=== PATIENT | male | born 1965 | race Caucasian/White ===

== ENCOUNTER 2016-07-23 03:05 | Emergency (ER) | payer OTHER ==
[~2016-07-23] VITALS: Ht 188 cm; Wt 117.9 kg
--- NOTE | 2016-07-23 03:28 | ED GI/GU/ABDOMINAL COMPLAINT ---
See Addendum History of Present Illness General Chief Complaint: General Adult Stated Complaint: "VOMITING SINCE 0200 BACK PAIN" Source: patient Exam Limitations: no limitations Vital Signs & Intake/Output Vital Signs & Intake/Output Vital Signs Date Time Temp Pulse Resp B/P B/P Pulse O2 O2 Flow FiO2 Mean Ox Delivery Rate 07/23 0348 Room Air 07/23 0320 169/103 07/23 0319 96.8 73 20 154/102 98 Room Air Allergies Coded Allergies: NO KNOWN ALLERGIES (09/11/12) Reconcile Medications No Known Home Medications Triage Note: PT TO ED C/O BACK PAIN THAT STARTED AT 0200. TRIED TO URINATE, "ONLY A LITTLE BIT CAME OUT" +N/V. SKIN WARM AND CLAMMY. DENIES PMH OF KIDNEY STONES Triage Nurses Notes Reviewed? yes Onset: Abrupt Duration: hour(s): Timing: single episode today Quality/Severity: sharpness Location: right flank Radiation: no radiation Activities at Onset: sleep Prior Abdominal Problems: similar symptoms Modifying Factors: Worsens With: movement. Associated Symptoms: nausea/vomiting HPI: 51 yo gentleman in prior good health, h/o of prior ear infections in [facility], presents with right flank pain that awoke him suddenly at 2am, associated with nausea, vomiting, and diaphoresis. He has no fever, chest pain, shortness of breath. She is otherwise well. Past History Travel History Traveled to [place] past 21 day No Medical History Any Pertinent Medical History? see below for history Neurological: NONE EENT: NONE Cardiovascular: NONE Respiratory: NONE Gastrointestinal: NONE Hepatic: NONE Renal: NONE Musculoskeletal: NONE Psychiatric: NONE Endocrine: NONE Surgical History Surgical History: none Psychosocial History What is your primary language Luxembourger Tobacco Use: Never used ETOH Use: occasional use Illicit Drug Use: denies illicit drug use Family History Hx Contributory? No Review of Systems Review of Systems Constitutional: Reports: no symptoms. EENTM: Reports: no symptoms. Respiratory: Reports: no symptoms. Cardiovascular: Reports: no symptoms. GI: Reports: no symptoms. Genitourinary: Reports: no symptoms. Musculoskeletal: Reports: no symptoms. Skin: Reports: no symptoms. Neurological/Psychological: Reports: no symptoms. Hematologic/Endocrine: Reports: no symptoms. Immunologic/Allergic: Reports: no symptoms. All Other Systems: Reviewed and Negative Physical Exam Physical Exam General Appearance: well developed/nourished, mild distress Head: atraumatic, normal appearance Eyes: Bilateral: normal appearance. Ears, Nose, Throat, Mouth: right TM with erythema, inflammation. Neck: normal inspection, supple, full range of motion Respiratory: normal breath sounds, chest non-tender, no respiratory distress Cardiovascular: regular rate/rhythm Gastrointestinal: normal bowel sounds, soft, non-tender Back: normal inspection Extremities: normal range of motion Neurologic/Psych: no motor/sensory deficits, awake, alert, oriented x 3 Skin: intact, normal color, warm/dry Core Measures ACS in differential dx? No Severe Sepsis Present: No Septic Shock Present: No Progress Differential Diagnosis: ear infection, sinusitis, bacterial vs viral vs allergic vs other. Plan of Care: Orders Procedure Date/time Status URINALYSIS 07/23 425 Active TROPONIN LEVEL 07/23 309 Active LIPASE 07/23 309 Active ETHANOL 07/23 309 Active COMPREHENSIVE METABOLIC PANEL 07/23 309 Active CBC WITHOUT DIFFERENTIAL 07/23 309 Complete AMYLASE 07/23 309 Active EKG 07/23 309 Active Current Medications Sig/Lizette Start time Last Medication Dose Stop Time Status Admin Sodium Chloride 1,000 ML BOLUS ONE 07/23 034 AC 07/23 (Normal Saline 0.9%) 07/23 0444 0337 Laboratory Tests 07/23/16 0345: Anion Gap 13, Estimated GFR > 60, BUN/Creatinine Ratio 16.0, Glucose 124 H, Calcium 9.1, Total Bilirubin 0.7, AST 20, ALT 40, Alkaline Phosphatase 58, Troponin I Pending, Total Protein 7.5, Albumin 4.4, Globulin 3.1, Albumin/ Globulin Ratio 1.4, Amylase 57, Lipase 145, CBC w Diff NO MAN DIFF REQ, RBC 5.47 , MCV 90.0, MCH 30.3, RDW 13.7, MPV 8.1, Gran % 57.2, Lymphocytes % 27.7, Monocytes % 8.7, Eosinophils % 5.8 H, Basophils % 0.6, Absolute Granulocytes 4.5, Absolute Lymphocytes 2.2, Absolute Monocytes 0.7 H, Absolute Eosinophils 0.4, Absolute Basophils 0, PUBS MCHC 33.7, Serum Alcohol < 10.0 Initial ED EKG: none Departure Departure Disposition: HOME OR SELF CARE Condition: Stable Clinical Impression Primary Impression: Otitis media Referrals: DALE TRIPATHI MD (PCP/Family) Departure Forms: Customer Survey General Discharge Information Prescriptions: Current Visit Scripts No Known Home Medications
[2016-07-23 04:00] LABS: ABSOLUTE BASOPHIL COUNT 0 /CUMM (0.0-0.2); ABSOLUTE EOSINOPHIL COUNT 0.4 /CUMM (0.0-0.7); ABSOLUTE GRANULOCYTE CT 4.5 /CUMM (1.4-6.5); ABSOLUTE LYMPH COUNT 2.2 /CUMM (1.2-3.4); ABSOLUTE MONOCYTE COUNT 0.7 /CUMM (0.10-0.60); BASOPHIL % 0.6 % (0.0-2.0); EOSINOPHIL % 5.8 % (0-5); GRANULOCYTE % 57.2 % (42.2-75.2); HEMATOCRIT 49.2 % (42-52); MEAN CORPUSCULAR HGB 30.3 PG (27.0-31.0); MEAN CORPUSCULAR HGB CONC 33.7 G/DL (33.0-37.0); MEAN PLATELET VOLUME 8.1 FL (7.4-10.4); PLATELET COUNT 264 /CUMM (130-400); RBC DISTRIBUTION WIDTH 13.7 % (11.5-14.5); RED BLOOD CELL CT 5.47 /CUMM (4.70-6.10); WHITE BLOOD CELL COUNT 7.8 /CUMM (4.8-10.8)
--- NOTE | 2016-07-23 04:30 | CT SCAN REPORT ---
EXAMINATION: CT ABDOMEN AND PELVIS WITHOUT CONTRAST CLINICAL INFORMATION: Left flank pain since 2:00 AM. Question kidney stones. COMPARISON: None TECHNIQUE: Multidetector volumetric imaging was performed from the superior aspect of the liver through the pubic symphysis. Sagittal and coronal reformatted images were obtained on the technologist's workstation. DLP: 1341 mGy-cm FINDINGS: LUNG BASES: The visualized lung bases are unremarkable. LIVER, GALLBLADDER, AND BILIARY TREE: The liver is normal in size, shape, and attenuation. No focal hepatic lesion or biliary ductal dilatation is present. The gallbladder is unremarkable with no evidence of radiopaque gallstones, gallbladder wall thickening, or obvious pericholecystic inflammatory changes. PANCREAS: Unremarkable. SPLEEN: Unremarkable. ADRENAL GLANDS: Unremarkable. KIDNEYS AND URETERS: The kidneys are normal in size, shape, and attenuation. Mild right hydronephrosis. There is asymmetric right perinephric stranding. There is a 0.3 cm calculus in the distal right ureter, approximately 0.6 cm proximal to the ureterovesicular junction. Stranding is also seen along the course of the right ureter. Right lower pole 2.4 cm simple cyst. No additional calculi are seen. BLADDER: Unremarkable. GASTROINTESTINAL TRACT: The stomach and small bowel are unremarkable. No dilated loops of bowel or evidence of obstruction. Normal appendix. No colonic wall thickening or inflammatory change. ABDOMINAL WALL: No significant hernia is appreciated. LYMPH NODES: No lymphadenopathy. VASCULAR: Unremarkable. PELVIC VISCERA: The prostate and seminal vesicles are unremarkable. OSSEOUS STRUCTURES: No acute or suspicious osseous abnormality. Mild degenerative changes seen in the spine and hips. IMPRESSION: Mild right hydronephrosis with prominent perinephric and periureteral stranding. 0.3 cm distal ureteral calculus.
--- NOTE | 2016-07-23 04:35 | ED GI/GU/ABDOMINAL COMPLAINT ---
History of Present Illness General Chief Complaint: General Adult Stated Complaint: "VOMITING SINCE 0200 BACK PAIN" Source: patient, family Exam Limitations: no limitations Vital Signs & Intake/Output Vital Signs & Intake/Output Vital Signs Date Time Temp Pulse Resp B/P B/P Pulse O2 O2 Flow FiO2 Mean Ox Delivery Rate 07/23 0606 97.0 67 20 147/95 95 Room Air 07/23 0348 Room Air 07/23 0320 169/103 07/23 0319 96.8 73 20 154/102 98 Room Air Allergies Coded Allergies: NO KNOWN ALLERGIES (09/11/12) Reconcile Medications Hydromorphone HCl (Dilaudid) 4 MG TABLET 1-2 TAB PO 4XDP PRN pain twenty...[id number] Ibuprofen 800 MG TABLET 1 TAB PO 4 TIMES/DAY PRN pain Ondansetron (Zofran Odt) 4 MG TAB.RAPDIS 1 TAB SL TID PRN nausea Tamsulosin HCl (Flomax) 0.4 MG CAP.ER.24H 1 CAP PO DAILY kidney stones/ prostate Triage Note: PT TO ED C/O BACK PAIN THAT STARTED AT 0200. TRIED TO URINATE, "ONLY A LITTLE BIT CAME OUT" +N/V. SKIN WARM AND CLAMMY. DENIES PMH OF KIDNEY STONES Triage Nurses Notes Reviewed? yes Onset: Abrupt Duration: hour(s):, constant Timing: single episode today Quality/Severity: right flank pain Location: right flank Radiation: no radiation Activities at Onset: sleep Prior Abdominal Problems: none Modifying Factors: Worsens With: movement. Associated Symptoms: abdominal pain, nausea/vomiting HPI: 51 yo gentleman in prior good health, h/o of prior ear infections in [facility], presents with right flank pain that awoke him suddenly at 2am, associated with nausea, vomiting, and diaphoresis. He has no fever, chest pain, shortness of breath. Past History Travel History Traveled to [place] past 21 day No Medical History Any Pertinent Medical History? see below for history Neurological: NONE EENT: NONE Cardiovascular: NONE Respiratory: NONE Gastrointestinal: NONE Hepatic: NONE Renal: NONE Musculoskeletal: NONE Psychiatric: NONE Endocrine: NONE Surgical History Surgical History: none Psychosocial History What is your primary language Cambodian Tobacco Use: Never used ETOH Use: occasional use Illicit Drug Use: denies illicit drug use Family History Hx Contributory? No Review of Systems Review of Systems Constitutional: Reports: no symptoms. EENTM: Reports: no symptoms. Respiratory: Reports: no symptoms. Cardiovascular: Reports: no symptoms. GI: Reports: no symptoms. Genitourinary: Reports: no symptoms. Musculoskeletal: Reports: no symptoms. Skin: Reports: no symptoms. Neurological/Psychological: Reports: no symptoms. Hematologic/Endocrine: Reports: no symptoms. Immunologic/Allergic: Reports: no symptoms. All Other Systems: Reviewed and Negative Physical Exam Physical Exam General Appearance: well developed/nourished, mild distress, moderate distress Head: atraumatic, normal appearance Eyes: Bilateral: normal appearance. Ears, Nose, Throat, Mouth: hearing grossly normal Neck: normal inspection, supple, full range of motion, normal alignment Respiratory: normal breath sounds, chest non-tender, no respiratory distress, quiet respiration, lungs clear Cardiovascular: regular rate/rhythm Gastrointestinal: normal bowel sounds, soft, non-tender, no organomegaly Back: normal inspection Extremities: normal range of motion Neurologic/Psych: no motor/sensory deficits, awake, alert, oriented x 3 Skin: intact, normal color, warm/dry Core Measures ACS in differential dx? No Severe Sepsis Present: No Septic Shock Present: No Progress Differential Diagnosis: pyelonephritis, ureterolithiasis, UTI/pyelo Plan of Care: Orders Procedure Date/time Status URINALYSIS 07/23 0426 Complete TROPONIN LEVEL 07/23 309 Complete LIPASE 07/23 031 Complete ETHANOL 07/23 031 Complete COMPREHENSIVE METABOLIC PANEL 07/23 309 Complete CBC WITHOUT DIFFERENTIAL 07/23 309 Complete AMYLASE 07/23 031 Complete EKG 07/23 031 Active Current Medications Sig/Lizette Start time Last Medication Dose Stop Time Status Admin Hydromorphone HCl 1 MG ONCE ONE 07/23 0630 UNVr (Dilaudid) 07/23 0631 Laboratory Tests 07/23/16 0518: Urine Color YEL, Urine Clarity HAZY H, Urine pH 5.5, Ur Specific Steele >= 1.030, Urine Protein NEG, Urine Ketones NEG, Urine Nitrite NEG, Urine Bilirubin NEG, Urine Urobilinogen 1.0, Ur Leukocyte Esterase NEG, Ur Microscopic SEDIMENT EXAMINED, Urine RBC 10-15 H, Urine WBC 1-3 H, Ur Epithelial Cells FEW, Urine Bacteria RARE H, Urine Mucus MOD H, Urine Hemoglobin MOD H, Urine Glucose NEG 07/23/16 0345: Anion Gap 13, Estimated GFR > 60, BUN/Creatinine Ratio 16.0, Glucose 124 H, Calcium 9.1, Total Bilirubin 0.7, AST 20, ALT 40, Alkaline Phosphatase 58, Troponin I < 0.01, Total Protein 7.5, Albumin 4.4, Globulin 3.1, Albumin/ Globulin Ratio 1.4, Amylase 57, Lipase 145, CBC w Diff NO MAN DIFF REQ, RBC 5.47 , MCV 90.0, MCH 30.3, RDW 13.7, MPV 8.1, Gran % 57.2, Lymphocytes % 27.7, Monocytes % 8.7, Eosinophils % 5.8 H, Basophils % 0.6, Absolute Granulocytes 4.5, Absolute Lymphocytes 2.2, Absolute Monocytes 0.7 H, Absolute Eosinophils 0.4, Absolute Basophils 0, PUBS MCHC 33.7, Serum Alcohol < 10.0 Diagnostic Imaging: Viewed by Me: CT Scan. Discussed w/RAD: CT Scan. Radiology Impression: abd/pelvic ct... 3mm stone.. as noted below. Initial ED EKG: normal axis, normal intervals, normal p-waves, normal QRS complex, normal sinus rhythm Comments: PATIENT: ALVINA SEO PRESENT AGE: 51 PATIENT ACCOUNT NO: [id number] : 66 LOCATION: [facility] ORDERING PHYSICIAN: KEYON BLANCAS MD SERVICE DATE: 07/23/16 EXAM TYPE: CAT - CT ABD & PELVIS W/O IV CONTRAS EXAMINATION: CT ABDOMEN AND PELVIS WITHOUT CONTRAST CLINICAL INFORMATION: Left flank pain since 2:00 AM. Question kidney stones. COMPARISON: None TECHNIQUE: Multidetector volumetric imaging was performed from the superior aspect of the liver through the pubic symphysis. Sagittal and coronal reformatted images were obtained on the technologist's workstation. DLP: 1341 mGy-cm FINDINGS: LUNG BASES: The visualized lung bases are unremarkable. LIVER, GALLBLADDER, AND BILIARY TREE: The liver is normal in size, shape, and attenuation. No focal hepatic lesion or biliary ductal dilatation is present. The gallbladder is unremarkable with no evidence of radiopaque gallstones, gallbladder wall thickening, or obvious pericholecystic inflammatory changes. PANCREAS: Unremarkable. SPLEEN: Unremarkable. ADRENAL GLANDS: Unremarkable. KIDNEYS AND URETERS: The kidneys are normal in size, shape, and attenuation. Mild right hydronephrosis. There is asymmetric right perinephric stranding. There is a 0.3 cm calculus in the distal right ureter, approximately 0.6 cm proximal to the ureterovesicular junction. Stranding is also seen along the course of the right ureter. Right lower pole 2.4 cm simple cyst. No additional calculi are seen. BLADDER: Unremarkable. GASTROINTESTINAL TRACT: The stomach and small bowel are unremarkable. No dilated loops of bowel or evidence of obstruction. Normal appendix. No colonic wall thickening or inflammatory change. ABDOMINAL WALL: No significant hernia is appreciated. LYMPH NODES: No lymphadenopathy. VASCULAR: Unremarkable. PELVIC VISCERA: The prostate and seminal vesicles are unremarkable. OSSEOUS STRUCTURES: No acute or suspicious osseous abnormality. Mild degenerative changes seen in the spine and hips. IMPRESSION: Mild right hydronephrosis with prominent perinephric and periureteral stranding. 0.3 cm distal ureteral calculus. DICTATED BY: KIARRA ALONSO,RIYA DATE/TIME DICTATED:07/23/16423 MINERAL SURVEYING TECHNICIAN:RAKESH DATE/TIME TRANSCRIBED:07/23/16423 CONFIDENTIAL, DO NOT COPY WITHOUT APPROPRIATE AUTHORIZATION. <Electronically signed in Other Vendor System> SIGNED BY: KIARRA ALONSO,RIYA 07/23 0430 Departure Departure Disposition: HOME OR SELF CARE Condition: Stable Clinical Impression Primary Impression: Renal colic on right side Secondary Impressions: Kidney stone Referrals: BHUMI ALONSO,DALE Oakley Departure Forms: Customer Survey General Discharge Information Prescriptions: Current Visit Scripts Tamsulosin HCl (Flomax) 1 CAP PO DAILY #10 CAP Hydromorphone HCl (Dilaudid) 1-2 TAB PO 4XDP PRN pain #20 TAB twenty...[id number] Ondansetron (Zofran Odt) 1 TAB SL TID PRN nausea #20 TAB Ref 1 Ibuprofen 1 TAB PO 4 TIMES/DAY PRN pain #60 TAB Comments 07/23/16, 6:28am... pt feeling better... 3mm kidney stone noted... discussed at length... pt safe for discharge.. will follow up with urology.
[2016-07-23 06:06] VITALS: BP 147/95
[2016-07-23] MEDS ORDERED: IBUPROFEN800 M1 PO (06:20)
[2016-07-23] MEDS ORDERED: ZOFRAN ODT4 M1 SL (06:20)
[2016-07-23] MEDS ORDERED: DILAUDID4 M1 PO (06:20)
[2016-07-23] MEDS ORDERED: FLOMAX0.4 M1 PO (06:20)
== END 2016-07-23 06:37 ==
LOC: ERH 03:05
PROVIDERS: Pediatrics
DX: N20.0 Calculus of kidney (principal); N23 Unspecified renal colic; H66.91 Otitis media, unspecified, right ear
CPT/HCPCS: 74176; 81001; 93005; 93010; 96374; 96375; 96376; G0480; J1885; J2405